=== PATIENT | female | born 1970 | race Caucasian/White ===

== ENCOUNTER 2020-08-16 18:31 | Outpatient (REF) | payer BC, SELFPAY ==
[2020-08-16 19:24] LABS: HCT 38.4 % (36.0-46.0); HGB 12.9 g/dL (11.2-15.7); MCH 32.3 pg (27.0-33.0); MCHC 33.6 % (32.0-36.0); MCV 96.2 fL (80-95); MPV 10.6 fL (8.0-11.0); Platelet Count 208 10^3/uL (130-400); RBC 3.99 10^6/uL (3.93-5.22); RDW 12.5 % (11.7-14.6); RDW-SD 44.2 fL; WBC 6.12 10^3/uL (4.4-10.8)
[2020-08-16 19:38] LABS: ALT 28 U/L (14-59); AST 12 U/L (15-37); Albumin 4.3 g/dL (3.4-5.0); Alkaline Phosphatase 75 U/L (46-116); Anion Gap 10.3 mmol/L (3-11); BUN 18 mg/dL (7-18); Bilirubin, Total 0.5 mg/dL (0.2-1.0); CO2 27.7 mmol/L (21.0-32.0); CREATININE 0.7 mg/dL (0.55-1.02); Calcium 9.1 mg/dL (8.5-10.1); Chloride 105 mmol/L (98-107); Glucose 98 mg/dL (74-106); Lipase 117 U/L (73-393); Potassium 4.1 mmol/L (3.5-5.1); Sodium 143 mmol/L (136-145); TSH (W/Ref FT4) 3.39 uIU/mL (0.36-3.74); Total Protein 7.5 g/dL (6.4-8.2)
[2020-08-16 20:02] LABS: Hemoglobin A1C 5.8 % (<5.7)
== END 2020-08-16 18:32 | disposition home or self-care (01) ==
LOC: NCHCN 18:31
PROVIDERS: Visit Provider Family Medicine
DX: R73.03 Prediabetes (principal); E03.9 Hypothyroidism, unspecified; R11.0 Nausea
CPT/HCPCS: 80053; 83690; 85027; 83036; 84443

== ENCOUNTER 2020-09-20 04:30 | Outpatient (CLI) | payer BC, SELFPAY ==
--- NOTE | 2020-09-20 | DI.US_ITS ---
Exam(s) US ABDOMEN EXAM: US ABDOMEN CLINICAL HISTORY: NAUSEA, R11.0 TECHNIQUE: Ultrasound abdomen performed using standard protocol. COMPARISON: No exams were available for comparison FINDINGS: LIVER: Normal size and echogenicity. No focal liver lesions are seen.. GALLBLADDER: No evidence of cholelithiasis. No evidence of wall thickening. No pericholecystic fluid identified. WALTON'S SIGN: Negative. BILIARY SYSTEM: No intrahepatic or extrahepatic biliary ductal dilation. KIDNEYS: Kidneys are symmetric in size. No evidence of renal calculi. No evidence of hydronephrosis. No renal mass or cyst identified. PANCREAS: Normal where visualized. SPLEEN: Not enlarged. ABDOMINAL AORTA AND IVC: Visualized portions normal caliber. ASCITES: None seen. IMPRESSION: Normal sonographic appearance of the upper abdomen. DATA REPOSITORY:
--- NOTE | 2020-09-20 | DI.MAMMO_ITS ---
Exam(s) MAMMO SCREENING EXAM: MAMMO SCREENING CLINICAL HISTORY: SCREENING, Z12.31 TECHNIQUE: Bilateral full field digital CC and MLO mammographic images were obtained with 3D tomosyn thesis and utilizing computer aided detection (CAD). COMPARISON: Available for comparison. FINDINGS: Masses/Architectural Distortion: None seen. Microcalcifications: No suspicious pleomorphic-type are seen. Skin Thickening/Nipple Retraction: None. IMPRESSION: 1. No significant interval change with no specific features of malignancy noted. 2. Unless there is more urgent need, screening mammography is recommended, as per [employer] guidelines. 3. Due to the extreme density of the breast tissue, MRI may be considered for screening purposes. BI-RADS Category 1 - Negative Breast Density - Category D - Extremely dense Breast density category C or D implies that the patient has dense breast tissue. Dense breast tissue is very common and is not abnormal but dense breast tissue can make it harder to find cancer on a ma mmogram. Also, dense breast tissue may increase their breast cancer risk. This information about the result of the mammogram report was provided to the patient to raise their awareness. Use this report when you speak with the patient about their risks for breast cancer, which includes their family hist ory. At that time, you may recommend for more screening tests (Ultrasound or MRI) as they might be us eful based on their risk. A negative radiographic report should not delay biopsy if a dominant or clinically suspicious mass is present. Up to ten percent of cancers are not identified on mammography. A negative report may reinforce clinical impression. Adenosis and dense breasts may obscure an underlying neoplasm. False positive reports average 6 to 10%. Patient will receive a letter notifying them of these results.
== END 2020-09-20 04:50 ==
PROVIDERS: PCP Family Medicine; Visit Provider Family Medicine
DX: Z12.31 Encounter for screening mammogram for malignant neoplasm of breast (principal); R11.0 Nausea
CPT/HCPCS: 77063; 77067; 76700

== ENCOUNTER 2020-12-24 17:21 | Outpatient (REF) | payer BC, SELFPAY ==
[2020-12-30 16:50] LABS: Helicobacter pylori Ag, Feces Negative (Negative)
== END 2020-12-24 17:22 | disposition home or self-care (01) ==
LOC: NCHCN 17:21
PROVIDERS: PCP Family Medicine; Visit Provider Family Medicine
DX: R10.13 Epigastric pain (principal); R53.83 Other fatigue; R71.8 Other abnormality of red blood cells
CPT/HCPCS: 87338

== ENCOUNTER 2021-01-03 16:46 | Outpatient (REF) | payer BC, SELFPAY ==
[2021-01-03 21:02] LABS: Iron 57 ug/dL (50-170); Total Iron Binding Capacity 286 ug/dL (250-450); Transferrin Sat 20 % (15-50)
[2021-01-03 21:22] LABS: Vitamin D 25 Total 30.5 ng/mL (30-100)
[2021-01-03 21:24] LABS: Ferritin 65 ng/mL (8-252); Folate 19.6 ng/mL (8.6-20.0); Vitamin B12 534 pg/mL (193-986)
== END 2021-01-03 16:47 | disposition home or self-care (01) ==
LOC: NCHCN 16:46
PROVIDERS: PCP Family Medicine; Visit Provider Family Medicine
DX: R53.83 Other fatigue (principal); R71.8 Other abnormality of red blood cells; R10.13 Epigastric pain
CPT/HCPCS: 82306; 82607; 82728; 82746; 83540; 83550

== ENCOUNTER 2021-01-22 16:37 | Outpatient (REF) | payer BC, SELFPAY ==
[2021-01-27 10:58] LABS: IgA 202 mg/dL (85-499); Interpretation (See Note); Tissue Transglutaminase IgA <1.2 U/mL (<4.0)
== END 2021-01-22 16:38 | disposition home or self-care (01) ==
LOC: NCHCN 16:37
PROVIDERS: PCP Family Medicine; Visit Provider Family Medicine
DX: R53.83 Other fatigue (principal); R10.13 Epigastric pain; R71.8 Other abnormality of red blood cells
CPT/HCPCS: 82784; 83516

== ENCOUNTER 2022-02-04 18:10 | Outpatient (REF) | payer BC, SELFPAY ==
[2022-02-04 20:35] LABS: Hemoglobin A1C 5.8 % (<5.7)
== END 2022-02-04 18:11 | disposition home or self-care (01) ==
LOC: NCHCN 18:10
PROVIDERS: PCP Family Medicine; Visit Provider Family Medicine
DX: E03.9 Hypothyroidism, unspecified (principal); R73.03 Prediabetes
CPT/HCPCS: 83036; 84443

== ENCOUNTER → 2022-02-13 14:20 | Outpatient (CLI) | payer BC, SELFPAY ==
--- NOTE | 2022-02-13 | DI.DEXA_ITS ---
Exam(s) XR DEXA BONE DENSITY W/WO RASHEED EXAM: XR DEXA BONE DENSITY W/WO RASHEED CLINICAL HISTORY: HYPOTHYROIDISM, E03.9 TECHNIQUE: Routine DEXA evaluation of the lumbar spine, hip, or forearm. COMPARISON: No exams were available for comparison FINDINGS: Performed on a Hologic unit. Lateral image: No compression fracture evident. Lumbar Spine total T-score: -1.3 Hip total T-score:-0.3 Independent reading at the level of the femoral neck yields T-score of -1.1 Forearm total T-score: -0.3 IMPRESSION: Bone mineral density measures in the osteopenia range. Fracture risk is moderate. Note: Any spine fracture indicates 5x risk for subsequent spine fracture and 2x risk for subsequent h ip fracture. World Health Organization criteria for BMD interpretation classify patients: Normal...... T- Score at or above -1.0 Osteopenic... T- Score between -1.0 and -2.5 Osteoporosis... T-Score at or below -2.5
--- OUTSIDE RECORDS SUMMARY | 2022-02-13 14:26 | XMS_ITS ---
:1970 Author Organization [facility] Address [address], [place] [id number] Care Team Providers Name Role Phone Gavi Sanchez Unavailable Unavailable PROBLEMS Type Condition ICD9-CM [id number] Onset Condition SNOMED Cod e Code Code Dates Status Problem Pharyngoesophageal R13.14 Active dysphagia Problem Dysphagia, R13.14 Active [id number] pharyngoesophageal phase Problem Asthma J45.909 Active 717444172 Problem Cystocele N81.10 Active 781764020 Problem Thyroid nodule E04.1 Active 84575 5005 Problem Hypothyroidism E03.9 Active 31466 008 Problem Bee sting allergy Z91.038 Active 28 0411978 Problem Fatigue R53.83 Active 96545461 Problem Dysphonia R49.0 Active 92124637 Problem Gastroesophageal K21.9 Active 266 451092 reflux disease without esophagitis Problem Tremor of both hands R25.1 Active 923789240 Problem Pre-diabetes R73.09 Active 2377232 02 Problem Jaw pain R68.84 Active 840733483 Problem Nausea R11.0 Active 953035543 Problem Abdominal pain R10.9 Active 95231 001 ALLERGIES Substance Reaction Event Type Date Status Bee Sting Unknown Drug Allergy Apr, Active ENCOUNTERS Encounter Location Date Diagnosis [facility] [address] [place] [address] Apr, Colon cancer screening [address] Z12.11 ; Pharyng oesophageal [place], [place] dysphagia R13.14 and [id number] Gastroesophageal reflux disease without esophagitis K21.[address] Jan, Epigastric pain R10.13 ; [address] [place], [place] Pharyngoesoph ageal [id number] dysphagia R13.14 and Encounter for ky reening colonoscopy Z12. 11 [facility] [address] [facility] 10 Jan, [address] dysphagia R13.14 ; [place], [place] Epigastric pain R10.13 ; [id number] Pyrosis R12 and Colon cancer screening Z12.[address] [facility] [address] [facility] 29 Dec, [address] [place], [place] [id number] IMMUNIZATIONS Vaccine Route Administration Date Status Tdap - Adult Unknown Apr 22, 2019 Administered SOCIAL HISTORY Qualifiers Date Never Smoker REASON FOR REFERRAL FUNCTIONAL STATUS PLAN OF CARE Activity Details Follow Up prn Reason: VITAL SIGNS Height 5ft 3.5in in 2021-04-04 Height 5ft 3.5in in 2021-02-07 Weight 120 lbs 2021-04-04 Weight 118.4 lbs 2021-02-07 Temperature 98 degrees Fahrenheit 2021-02-07 Heart Rate 55 /min 2021-02-07 Oximetry 99 2021-02-07 BMI 20.92 kg/m2 2021-04-04 BMI 20.64 kg/m2 2021-02-07 Blood pressure systolic 110 mm Hg 2021-02-07 Blood pressure diastolic 65 mm Hg 2021-02-07 MEDICATIONS Medication Instructions Dosage Frequency Start End Duration Statu s Date Date EpiPen Active Estrace 0.1 as directed Active MG/GM Liothyronine Orally Once a 1 tablet on 24h 30 day(s) Active Sodium 5 MCG day an empty stomach Omeprazole 20 MG Orally Once a 1 tablet 30 24h 30 da ys Not-Taki day minutes ng before evening meal Levothyroxine Orally Once a 1 tablet in 24h 30 day(s ) Active Sodium 88 MCG day the morning on an empty stomach Xopenex HFA 45 Inhalation 1 puff as 4h Acti ve MCG/ACT every 4 hrs needed PROCEDURES Procedure Date Ordered Result Body Site COLONOSCOPY DIAGNOSTIC Feb 20, 2021 EGD BIOPSY SINGLE/MULTIPLE Feb 20, 2021 RESULTS Name Result Date Reference Range SURGICAL PATH 2021-02-20 REASON FOR VISIT GI-[place]/EGD f/u, GI-COLO/EGD, GI-abdominal pain, worse when stomach is empty, buring sensation, CHART PREP Insurance Providers [facility] Patient Patient Patient Patient Patient Subscriber Subscriber Subscriber Group Insurance Plan Plan Plan Plan ID Relationship Address Phone Name Date of ID Name Date of No Type Insurance Insurance Insurance Coverage to Subscriber Address Phone Name Dates [place] [phone] [place] self [facility] [id number] [address] [address] [id number] [place] [id number] [phone]
== END ==
PROVIDERS: PCP Family Medicine; Visit Provider Family Medicine
DX: E03.9 Hypothyroidism, unspecified (principal); M85.88 Other specified disorders of bone density and structure, other site
CPT/HCPCS: 77080

== ENCOUNTER 2022-03-27 02:08 | Outpatient (CLI) | payer BC, SELFPAY ==
--- NOTE | 2022-03-27 14:00 | NS.NUTBLAN_ITS ---
Sujata was referred for nutritional counseling for recent elevated A1C indicating pre diabetes. Father has NIDDM, overweight. . No hx of gestational diabetes (kids are adopted). PMH: hypothyroidism, osteopenia. Diet Recall: oatmeal for B, lunch is sauteed vegetables, snacks on nuts, Dinner: vegetables mostly, sometimes has potato Exercise: daily 30 minutes, hikes on weekends 5'3 120 lbs BMI 21 Appears very toned and fit A1C: 5.8% Elevated A1C not related to poor life style choices. Suspect will normalize over time and may be related to thyroid issues, stress. Reviewed typical meals and encouraged Sujata to be more liberal in her intake of complex carbs, lean protein and healthy fats. Current diet is deficient in protein, carbs and fat. Sujata to send in a 5 day meal plan and underwriter solicitation director will provide her with meal suggestions based on her preferences. No follow up scheduled at this time.
== END 2022-03-27 02:09 | disposition home or self-care (01) ==
LOC: DS 02:09
PROVIDERS: PCP Family Medicine; Visit Provider Dietitian, Registered
DX: R73.03 Prediabetes (principal); E03.9 Hypothyroidism, unspecified; Z71.3 Dietary counseling and surveillance
CPT/HCPCS: 97802

== ENCOUNTER 2022-08-20 01:20 | Outpatient (CLI) | payer BC, SELFPAY ==
--- NOTE | 2022-08-20 | DI.MRI_ITS ---
Exam(s) MR BRAIN WO EXAM: MR BRAIN WO CLINICAL HISTORY: ATAXIA R27.0 MEMORY IMPAIRMENT R41.3 TECHNIQUE: Multiplanar multisequence MRI of the brain was performed. COMPARISON: MR MR BRAIN WITH AND WITHOUT CONTRAST from 02/25/2015 FINDINGS: VENTRICLES AND EXTRA AXIAL SPACES: Normal in size and morphology for the patient's age. 14 x 12 by 1 1 millimeter pineal cyst. No mass effect. No change from prior exam. MIDLINE SHIFT: None. CEREBRAL PARENCHYMA: No focus of restricted diffusion to suggest acute infarct. No space-occupying le shanita identified. HEMORRHAGE: None. BRAINSTEM/CEREBELLUM: Normal. VISUALIZED PARANASAL SINUSES/MASTOIDS:Clear. Vasculature: Normal flow void. PITUITARY GLAND: Unremarkable. ORBITS: Unremarkable. IMPRESSION: Pineal cyst, otherwise negative. DATA REPOSITORY:
== END 2022-08-20 01:40 ==
LOC: DI 01:21
PROVIDERS: PCP Family Medicine; Visit Provider Family Medicine
DX: D35.4 Benign neoplasm of pineal gland (principal); R27.0 Ataxia, unspecified; R41.3 Other amnesia
CPT/HCPCS: 70551

== ENCOUNTER 2022-09-04 01:16 | Outpatient (CLI) | payer OTHER, SELFPAY ==
--- NOTE | 2022-09-04 16:02 | DI.MAMMO_ITS ---
Exam(s) MAMMO SCREENING EXAM: MAMMO SCREENING CLINICAL HISTORY: SCREENING MAMMO FOR BREAST CANCER Z12.31. TECHNIQUE: Bilateral full field digital CC and MLO mammographic images were obtained with 3D tomosyn thesis and utilizing computer aided detection (CAD). COMPARISON: 2016 through 2020 FINDINGS: Masses/Architectural Distortion: None seen. Microcalcifications: No suspicious pleomorphic-type are seen. Skin Thickening/Nipple Retraction: None. IMPRESSION: 1. No significant interval change with no specific features of malignancy noted. 2. Unless there is more urgent need, annual screening mammography is recommended, as per [employer] guidelines. BI-RADS Category 1-negative Breast Density - Category D - extremely dense Breast Density Category D: The mammogram demonstrates the patient's breast tissue is dense. Dense deshawn ast tissue is very common and is not abnormal but dense breast tissue can make it harder to find canc er on a mammogram. Also, dense breast tissue may increase their breast cancer risk. This information about the result of the mammogram report was provided to the patient to raise their awareness. Use th is report when you speak with the patient about their risks for breast cancer, which includes their f amily history. At that time, you may recommend for more screening tests (Ultrasound or MRI) as they m ight be useful based on their risk. A negative radiographic report should not delay biopsy if a dominant or clinically suspicious mass is present. Up to ten percent of cancers are not identified on mammography. A negative report may reinforce clinical impression. Adenosis and dense breasts may obscure an underlying neoplasm. False positive reports average 6 to 10%.
== END 2022-09-04 01:36 ==
PROVIDERS: PCP Family Medicine; Visit Provider Family Medicine
DX: Z12.31 Encounter for screening mammogram for malignant neoplasm of breast (principal)
CPT/HCPCS: 77063; 77067

== ENCOUNTER 2022-12-30 05:11 | Outpatient (CLI) | payer OTHER, SELFPAY ==
[2022-12-30 07:29] LABS: HCT 38.9 % (36.0-46.0); HGB 13.2 g/dL (11.2-15.7); MCH 31.7 pg (27.0-33.0); MCHC 33.9 % (32.0-36.0); MCV 94 fL (80-95); MPV 9.3 fL (8.0-11.0); Platelet Count 204 10^3/uL (130-400); RBC 4.16 10^6/uL (3.93-5.22); RDW 12.2 % (11.7-14.6); RDW-SD 42.6 fL; WBC 4.42 10^3/uL (4.4-10.8)
[2022-12-30 08:31] LABS: Anion Gap 10.9 mmol/L (3-11); BUN 16 mg/dL (7-18); CO2 28.1 mmol/L (21.0-32.0); CREATININE 0.8 mg/dL (0.55-1.02); Chloride 97 mmol/L (98-107); Estimated GFR 89.71 (mL/min/1.73m2); Ferritin 104 ng/mL (8-252); Glucose 98 mg/dL (74-106); Potassium 3.4 mmol/L (3.5-5.1); Sodium 136 mmol/L (136-145); TSH (W/Ref FT4) 0.28 uIU/mL (0.36-3.74); Vitamin B12 618 pg/mL (193-986)
[2022-12-30 08:52] LABS: FREE T4 0.94 ng/dL (0.76-1.46)
[2022-12-30 12:38] LABS: Hemoglobin A1C 5.9 % (<5.7)
[2023-01-03 15:29] LABS: Methylmalonic Acid 0.17 nmol/mL (<=0.40)
== END 2022-12-30 05:12 | disposition home or self-care (01) ==
LOC: LBO 05:12
PROVIDERS: PCP Family Medicine; Visit Provider Family Medicine
DX: R53.83 Other fatigue (principal); I95.9 Hypotension, unspecified; E03.9 Hypothyroidism, unspecified
CPT/HCPCS: 36415; 80048; 80186; 85027; 82607; 82728; 83036; 84439; 84443; 84481

== ENCOUNTER 2023-01-28 13:32 | Outpatient (RCR) | payer OTHER, SELFPAY ==
--- NOTE | 2023-01-28 14:00 | HOLTER_ITS ---
APPROVED REPORT Conclusion This is a 48-hour Holter monitor ordered for bradycardia Rhythm throughout was sinus. Average heart rate was 63. Minimum was 42, maximum 137 There was 1 PVC seen There was no atrial fibrillation, no high-grade AV block, no pauses greater than 3 seconds Patient symptoms were reported which correlated to sinus rhythm
== END 2023-01-28 23:59 | disposition home or self-care (01) ==
LOC: CARDOPNVT 13:32
PROVIDERS: PCP Family Medicine; Visit Provider Family Medicine
DX: R00.1 Bradycardia, unspecified (principal)
CPT/HCPCS: 93225

== ENCOUNTER 2023-02-01 17:03 | Outpatient (RCR) | payer OTHER, SELFPAY | END 2023-02-28 23:59 | disposition home or self-care (01) | LOC: CARDOPNVT 17:03 | PROVIDERS: PCP Family Medicine; Visit Provider Family Medicine | DX: R00.1 Bradycardia, unspecified (principal) | CPT/HCPCS: 93226 ==

== ENCOUNTER 2023-02-02 02:27 | Outpatient (CLI) | payer OTHER, SELFPAY ==
[2023-02-02 16:11] LABS: BUN 17 mg/dL (7-18); CREATININE 0.8 mg/dL (0.55-1.02); Calcium 8.7 mg/dL (8.5-10.1); Chloride 105 mmol/L (98-107); Estimated GFR 89.71 (mL/min/1.73m2); Glucose 106 mg/dL (74-106); Potassium 3.8 mmol/L (3.5-5.1); Sodium 140 mmol/L (136-145)
== END 2023-02-02 02:28 | disposition home or self-care (01) ==
LOC: LBO 02:27
PROVIDERS: PCP Family Medicine; Visit Provider Family Medicine
DX: E03.9 Hypothyroidism, unspecified (principal); I95.9 Hypotension, unspecified
CPT/HCPCS: 36415; 80048; 84443

== ENCOUNTER → 2023-02-08 18:20 | Outpatient (CLI) | payer OTHER, SELFPAY ==
--- NOTE | 2023-02-08 | DI.RAD_ITS ---
Exam(s) XR SHOULDER LT COMPLETE 2+V EXAM: XR SHOULDER LT COMPLETE 2+V CLINICAL HISTORY: Lt shoulder pain, M25.512. TECHNIQUE: 2D digital imaging was performed. Three views. COMPARISON: No exams were available for comparison FINDINGS: BONES: No acute fracture is present. No bony destructive lesion is seen. JOINTS: No dislocation present. No significant degenerative changes of the AC joint or glenohumeral joint. SOFT TISSUE: Normal. IMPRESSION: Unremarkable radiographs of the left shoulder. DATA REPOSITORY: RADIATION DOSE DELIVERED:
== END ==
PROVIDERS: PCP Family Medicine; Visit Provider Family Medicine
DX: M25.512 Pain in left shoulder (principal)
CPT/HCPCS: 73030

== ENCOUNTER 2024-03-06 16:28 | Outpatient (REF) | payer OTHER, SELFPAY ==
--- NOTE | 2024-03-06 14:40 | PAPFT_PTH ---
PATIENT: Sujata Liu LOC: [facility] U#:[id number] AGE/SX: 53/F ROOM: RE03/06/[address]: Azucena Vivas : 1970 BED: DIS: 03/06/2024 SPEC #: [id number] RECD: 03/06/24 18:23 STATUS: VIJI REQ #: [id number] PROSPER: 03/06/24 14:[address]: Azucena Vivas DEPT: [facility] Cytology RECD BY: Amna Rodriguez Tissues: 1 - CX/ENDOCX FOR PAP SMEARS Procedures: PAP THIN PREP/UVM Screening HPV DNA PROBE Comments: [id number] (HPV 16 & 18/45)
== END 2024-03-06 16:29 | disposition home or self-care (01) ==
LOC: NCHCN 16:28
PROVIDERS: PCP Family Medicine; Visit Provider Family Medicine
DX: Z11.51 Encounter for screening for human papillomavirus (HPV) (principal); Z01.419 Encounter for gynecological examination (general) (routine) without abnormal findings
CPT/HCPCS: 88142; 87624

== ENCOUNTER 2024-04-12 02:18 | Outpatient (CLI) | payer OTHER, SELFPAY ==
--- NOTE | 2024-04-12 | DI.MAMMO_ITS ---
Exam(s) MAMMO SCREENING EXAM: MAMMO SCREENING CLINICAL HISTORY: SCREENING, Z12.31. TECHNIQUE: Bilateral full field digital CC and MLO mammographic images were obtained with 3D tomosyn thesis and utilizing computer aided detection (CAD). COMPARISON: Prior mammograms were reviewed. FINDINGS: Fibroglandular tissue pattern again noted be very dense, this decreasing the sensitivity of the mammo gram for finding hidden underlying lesions. There are no CAD designations There are no obvious new spiculated masses nor new malignant appearing microcalcification groups. There is no significant architectural distortion nor skin thickening-retraction. IMPRESSION: Very dense bilateral fibroglandular tissue. No obvious radiographic evidence of malignancy. BI-RADS Category 1 - Negative Breast Density - Category D - Extremely dense Breast density Category C or D implies that the patient has dense breast tissue. Dense breast tissue can make it harder to find cancer on a mammogram. Dense breast tissue is also associated with an incr eased risk of breast cancer. This information about the result of the mammogram report was provided to the patient to raise their awareness. Use this report when you speak with the patient about their risks for breast cancer, which includes their family history. At that time, you may recommend additional screening tests (Ultrasoun d or MRI) as these tests may add significant information. A negative radiographic report should not delay biopsy if a dominant or clinically suspicious mass is present. Up to ten percent of cancers are not identified on mammography. A negative report may reinforce clinical impression. Adenosis and dense breasts may obscure an underlying neoplasm. False positive reports average 6 to 10%. Patient will receive a letter notifying them of these results.
== END 2024-04-12 02:38 ==
LOC: DI 02:18
PROVIDERS: PCP Family Medicine; Visit Provider Family Medicine
DX: Z12.31 Encounter for screening mammogram for malignant neoplasm of breast (principal); R92.343 Mammographic extreme density, bilateral breasts
CPT/HCPCS: 77063; 77067

== ENCOUNTER 2024-08-28 14:08 | Outpatient (CLI) | payer OTHER, SELFPAY ==
--- NOTE | 2024-08-28 13:15 | DI.MRI_ITS ---
Exam(s) MR CERVICAL SPINE WO EXAM: MR CERVICAL SPINE WO CLINICAL HISTORY: neck pain, midline 3 months. Cervicalgia, M54.2 TECHNIQUE: Multiplanar multisequence MRI of the cervical spine was performed without intravenous contrast. COMPARISON: No exams were available for comparison FINDINGS: BONES: Vertebral body heights are maintained. Alignment is normal. Bone marrow signal intensity is within normal limits. CERVICAL CORD: Craniovertebral junction is unremarkable. The cervical cord is normal size and signal intensity. SOFT TISSUES: Unremarkable. C2-3: No disc herniation or bulge is identified. No evidence of neural foraminal narrowing. No significant central canal stenosis. C3-4: A small focal right paracentral disc protrusion which contacts the anterior aspect of the cord none mildly effaces the anterior CSF space. No evidence of neural foraminal narrowing. C4-5: No disc herniation or bulge is identified. No evidence of neural foraminal narrowing. No significant central canal stenosis. C5-6: Mild loss of disc height. Small endplate osteophytes and mild concentric disc bulging. No disc herniation is identified.No evidence of neural foraminal narrowing. No significant central canal stenosis. C6-7: No disc herniation or bulge is identified. No evidence of neural foraminal narrowing. No significant central canal stenosis. C7-T1: No disc herniation or bulge is identified. No evidence of neural foraminal narrowing. No significant central canal stenosis. IMPRESSION: Small right paracentral disc protrusion at C3-4 which mildly impinges on the anterior cervical cord. Mild degenerative disc changes at C 5 6. No significant neural foraminal narrowing. DATA REPOSITORY:
== END 2024-08-28 14:28 ==
LOC: DI 14:09
PROVIDERS: PCP Family Medicine; Visit Provider Physician Assistant
DX: M50.221 Other cervical disc displacement at C4-C5 level (principal)
CPT/HCPCS: 72141

== ENCOUNTER 2025-02-15 19:37 | Outpatient (REF) | payer OTHER, SELFPAY ==
[2025-02-15 21:01] LABS: Abs Immature Grans 0.02 10^3/uL (0.0-0.06); HCT 33.5 % (36.0-46.0); HGB 11.3 g/dL (11.2-15.7); Immature Grans % 0.3 %; MCH 32.8 pg (27.0-33.0); MCHC 33.7 % (32.0-36.0); MCV 97 fL (80-95); MPV 10.1 fL (8.0-11.0); Platelet Count 195 10^3/uL (130-400); RBC 3.44 10^6/uL (3.93-5.22); RDW 13.2 % (11.7-14.6); RDW-SD 47.7 fL; WBC 7.10 10^3/uL (4.4-10.8)
[2025-02-15 21:15] LABS: Magnesium 2.0 mg/dL (1.6-2.6)
[2025-02-15 21:17] LABS: ALT 81 U/L (10-49); AST 37 U/L (<34); Albumin 4.6 g/dL (3.2-5.0); Alkaline Phosphatase 67 U/L (46-116); Anion Gap 9.7 mmol/L (3-11); BUN 19 mg/dL (9-23); Bilirubin, Total 0.6 mg/dL (0.2-1.2); CO2 27.3 mmol/L (20.0-31.0); Calcium 9.0 mg/dL (8.3-10.6); Chloride 103 mmol/L (98-107); Glucose 100 mg/dL (74-106); Potassium 3.8 mmol/L (3.5-5.1); Sodium 140 mmol/L (136-145); Total Protein 7.5 g/dL (5.7-8.2)
== END 2025-02-15 19:38 | disposition home or self-care (01) ==
LOC: LBN 19:37
PROVIDERS: PCP Family Medicine; Visit Provider Physician Assistant Medical
DX: R53.83 Other fatigue (principal)
CPT/HCPCS: 80053; 83735; 85025

== ENCOUNTER 2025-02-21 00:34 | Outpatient (CLI) | payer OTHER, SELFPAY ==
[2025-02-21 07:58] LABS: Abs Immature Grans 0.02 10^3/uL (0.0-0.06); HCT 35.4 % (36.0-46.0); HGB 11.9 g/dL (11.2-15.7); Immature Grans % 0.4 %; MCH 32.6 pg (27.0-33.0); MCHC 33.6 % (32.0-36.0); MCV 97 fL (80-95); MPV 10.0 fL (8.0-11.0); Platelet Count 202 10^3/uL (130-400); RBC 3.65 10^6/uL (3.93-5.22); RDW 13.0 % (11.7-14.6); RDW-SD 46.8 fL; WBC 4.57 10^3/uL (4.4-10.8)
[2025-02-21 08:00] LABS: ESR 11 mm/hr (0-30)
[2025-02-21 08:36] LABS: C-Reactive Protein < 0.50 mg/dL (<=0.50)
[2025-02-21 08:38] LABS: ALT 51 U/L (10-49); AST 32 U/L (<34); Albumin 4.9 g/dL (3.2-5.0); Alkaline Phosphatase 70 U/L (46-116); Bilirubin, Direct 0.1 mg/dL (<=0.3); Bilirubin, Total 0.7 mg/dL (0.2-1.2); Total Protein 8.3 g/dL (5.7-8.2)
[2025-02-21 08:41] LABS: Vitamin B12 1078 pg/mL (211-911)
[2025-02-21 08:42] LABS: Ferritin 189 ng/mL (7-271)
[2025-02-21 09:02] LABS: Folate > 24.0 ng/mL (>5.38)
[2025-02-21 09:29] LABS: TSH (W/Ref FT4) > 150.00 uIU/mL (0.55-4.78)
[2025-02-21 11:15] LABS: Glucose Negative (Negative)
[2025-02-22 09:49] LABS: Hepatitis A Antibody IgM Negative (Negative); Hepatitis C Ab w Rflx HCV PCR Negative (Negative)
== END 2025-02-21 00:35 | disposition home or self-care (01) ==
LOC: LBO 00:35
PROVIDERS: PCP Family Medicine; Visit Provider Family Medicine
DX: N17.9 Acute kidney failure, unspecified (principal); R79.89 Other specified abnormal findings of blood chemistry
CPT/HCPCS: 36415; 80076; 85652; 86704; 86709; 86803; 87340; 81003; 82043; 82570; 82607; 82728; 82746; 84439; 84443; 85025; 86140

== ENCOUNTER 2025-02-21 17:55 | Outpatient (REF) | payer OTHER, SELFPAY ==
[2025-02-21 19:20] LABS: Anion Gap 8.8 mmol/L (3-11); BUN 14 mg/dL (9-23); CO2 25.2 mmol/L (20.0-31.0); Calcium 9.1 mg/dL (8.3-10.6); Chloride 100 mmol/L (98-107); Glucose 84 mg/dL (74-106); Potassium 3.7 mmol/L (3.5-5.1); Sodium 134 mmol/L (136-145)
== END 2025-02-21 17:56 | disposition home or self-care (01) ==
LOC: NCHCN 17:55
PROVIDERS: PCP Family Medicine; Visit Provider Family Medicine
DX: N17.9 Acute kidney failure, unspecified (principal)
CPT/HCPCS: 80048